=== PATIENT | female | born 1955 | race Caucasian/White ===

== ENCOUNTER 2017-06-27 08:06 | Emergency (ER) ==
[2017-06-27 08:17] VITALS: BP 132/86; TEMP 96.8; BMI 23.8
[2017-06-27] MEDS ORDERED: MORPHINE 4 MG/ML SYRINGE IM STA (08:20)
[2017-06-27] MEDS ORDERED: PHENERGAN 25 MG/ML VIAL IM STA (08:20)
--- NOTE | 2017-06-27 08:23 | ED.PDOC ---
General ED Provider: Dr. GEMA CHILDRESS-ER Chief Complaint: Wrist Pain/Injury Stated Complaint: i hurt my wrist Time Seen by Physician: 08:22 Information Source: Patient Exam Limitations: No limitations Nursing and Triage Documentation Reviewed and Agree: Yes Reviewed sepsis parameters & appropriate labs ordered?: Yes System Inflammatory Response Syndrome: Not Applicable Sepsis Protocol: For patient's 13 years and over: Temp is 96.8 and below OR 101 and greater Pulse >90 BPM Resp >20/minute Acutely Altered Mental Status Are patient's symptoms suggestive of a new infection, such as: -Pneumonia -Skin, Soft Tissue -Endocarditis -UTI -Bone, Joint Infection -Implantable Device -Acute Abdominal Infection -Wound Infection -Meningitis -Blood Stream Catheter Infection -Unknown Musculoskeletal Complaint Exam - Hand/Wrist Complaint/Exam Location of Pain: Reports: Right, Wrist Mechanism of Injury: Reports: Trauma Onset/Duration: one hour Symptoms Are: Still present Onset of Pain: Reports: Immediate Initial Severity: Mild Current Severity: Moderate Location: Reports: Discrete (right wrist) Character: Reports: Dull, Aching, Throbbing Aggravating: Reports: Movement Associated Signs and Symptoms: Reports: Swelling Hand/Wrist Findings: Present: Swelling Tenderness: Present: Radius, Ulna Compartment Syndrome Risk Factors: Present: Pain Differential Diagnoses: Contusion, Closed Fracture, Sprain, Strain Review of Systems - Review Of Systems Constitutional: Reports: No symptoms Eyes: Reports: No symptoms Ears, Nose, Mouth, Throat: Reports: No symptoms Respiratory: Reports: No symptoms Cardiac: Reports: No symptoms GI: Reports: No symptoms : Reports: No symptoms Musculoskeletal: Reports: Joint pain, Joint swelling, Muscle pain Skin: Reports: No symptoms Neurological: Reports: No symptoms Endocrine: Reports: No symptoms Hematologic/Lymphatic: Reports: No symptoms All Other Systems: Reviewed and Negative Past Medical History - Past Medical History Previously Healthy: Yes Endocrine: Reports: Unknown Cardiovascular: Reports: Unknown Respiratory: Reports: Unknown Hematological: Reports: Unknown Gastrointestinal: Reports: Unknown Genitourinary: Reports: Unknown Neuro/Psych: Reports: Unknown Musculoskeletal: Reports: Unknown Cancer: Reports: Unknown Last Menstrual Period: unknown - Surgical History General Surgical History: Reports: Unknown - Family History Family History: Reports: Unknown - Social History Smoking Status: Former smoker Hx Substance Use: No Alcohol Screening: Occasionally - Immunizations Tetanus Shot up to Date: Yes (3-4 years) Physical Exam - Physical Exam Appearance: Well-appearing, No pain distress, Well-nourished Pain Distress: Moderate Eyes: KRISTIN ENT: Ears normal, Nose normal, Oropharynx normal Neck: Supple Respiratory: Airway patent Cardiovascular: RRR GI/: Soft Musculoskeletal: Limited ROM Skin: Warm Neurological: Sensation intact, Motor intact, Reflexes intact, Cranial nerves intact, Alert, Oriented Psychiatric: Affect appropriate, Mood appropriate Interpretation - Radiology Interpretation Radiology Interpretation By: ED Physician Radiology Results: Positive (noted comminuted, displaced distal radius fx) Procedures - Splinting Location: right wrist Hand-Made Type: Orthoglass Splint: Sugar-tong Pre-Proc Neuro Vasc Exam: Normal Post-Proc Neuro Vasc Exam: Normal Physician Notification - Case Discussed Physician Notified: dr tineo(orthopedics--[facility])--agreed to see in close f/u Critical Care Note - Critical Care Note Total Time (mins): 0 Course - Course Orders, Labs, Meds: Orders Category Date Time Status SPLINT [TREATMENT ORDER:NURSING] ONCE CARE 06/27/17 08:39 Active ED SPLINT APPLICATION .ONCE EMERGENCY 06/27/17 08:39 Active Hydrocodone Bit/Acetaminophen [[place] 7.5-325] MEDS 06/27/17 08:25 Discontinued 1 tab PO ONCE STA Morphine Sulfate [Morphine 4 mg/ml Syringe] MEDS 06/27/17 08:20 Discontinued 4 mg IM ONCE STA Promethazine HCl [Phenergan 25 mg/ml Vial] MEDS 06/27/17 08:20 Discontinued 25 mg IM ONCE STA WRIST, RIGHT 3 VIEWS Stat RADS 06/27/17 08:20 Taken Medications Discontinued Medications Generic Name Dose Route Start Last Admin Trade Name Adri PRN Reason Stop Dose Admin Hydrocodone Bitart/Acetaminophen 1 tab 06/27/17 08:25 06/27/17 08:35 [place] 7.5-325 PO 06/27/17 08:26 1 tab ONCE STA Administration Morphine Sulfate 4 mg 06/27/17 08:20 Morphine 4 Mg/Ml Syringe IM 06/27/17 08:21 ONCE STA Promethazine HCl 25 mg 06/27/17 08:20 Phenergan 25 Mg/Ml Vial IM 06/27/17 08:21 ONCE STA Vital Signs: Temp Pulse Resp BP Pulse Ox 06/27/17 08:08 96.8 F L 100 H 20 132/86 93 L Departure - Departure Time of Disposition: 08:53 Disposition: HOME SELF-CARE Discharge Problem: Displaced comminuted fracture of shaft of radius, right arm, initial encounter for closed fracture Instructions: Wrist Fracture in Adults (ED) Condition: Good Pt referred to PMD for follow-up: Yes IPMP verified?: No Additional Instructions: keep elevated and iced today--norco 7.5mg q 4hrs prn paini #20---f/u with dr blackman office thursday([employer] [facility])--call if any loss of feeling or blood flow or uncontrolled pain Allergies/Adverse Reactions: Allergies No Known Allergies Allergy (Unverified 06/27/17 08:17) Home Medications: Ambulatory Orders Alendronate Sodium [Fosamax] 70 mg PO WEEKLY 06/27/17 Multivitamin [Multi-Vitamin Daily] 1 each PO DAILY 06/27/17 Simvastatin [Zocor] 40 mg PO BEDTIME 06/27/17 Disposition Discussed With: Patient, Family
[2017-06-27] MEDS ORDERED: NORCO 7.5-325 PO STA (08:25)
--- NOTE | 2017-06-27 09:16 | DI ---
EXAM: Three views of the right wrist HISTORY: Fall. COMPARISON: None FINDINGS: There is comminuted minimally displaced fracture of the distal radius with the fracture ext ending into the radiocarpal joint. The ulna is normal. Soft tissues demonstrate soft tissue swelling . The carpal bones are unremarkable. IMPRESSION: Comminuted minimally displaced fracture of the distal radius with fracture line extendin g into the radiocarpal joint.
== END 2017-06-27 09:18 | disposition home or self-care (01) ==
LOC: ED 08:06
DX: S52.301A Unspecified fracture of shaft of right radius, initial encounter for closed fracture (principal); W19.XXXA Unspecified fall, initial encounter
CPT/HCPCS: 99283